=== PATIENT | male | born 1990 | race Caucasian/White ===

== ENCOUNTER → 2017-05-24 | Outpatient (CLI) | payer BC ==
--- NOTE | 2017-05-24 17:42 | Diagnostic Imaging Report ---
INDICATION: Right renal calculus. FINDINGS: Single view of the abdomen reveals an approximately 0.4 cm calculus projecting over the lower pole of the right kidney. No other pathologic calcification is seen within the abdomen. There is no evidence of bowel obstruction or free intraperitoneal gas. IMPRESSION: 0.4 cm calculus projects over the lower pole of the right kidney. There is no radiographic evidence of additional pathologic calcification. Dictated by: Dictated on workstation # [id number]
== END ==
LOC: RAD 16:59
PROVIDERS: ATTEND Urology
DX: N20.0 Calculus of kidney (principal)
CPT/HCPCS: 74000

== ENCOUNTER 2017-05-29 08:55 | Outpatient (CLI) | payer BC ==
[~2017-05-29] VITALS: Ht 175.3 cm; Wt 70.3 kg
[2017-05-29] MEDS ORDERED: AMIT10TA6 PO (11:50)
== END 2017-05-29 12:23 ==
LOC: PREOP 08:55
PROVIDERS: ATTEND Urology
DX: Z01.818 Encounter for other preprocedural examination (principal); N20.1 Calculus of ureter

== ENCOUNTER 2017-05-31 06:39 | Day surgery (SDC) | payer BC ==
[~2017-05-31] VITALS: Ht 175.3 cm; Wt 70.3 kg
[~2017-05-31 06:39] MED LIST: AMIT10TA6 PO
[2017-05-31] MEDS ORDERED: NS (IVPB) 50 ML ONE (06:58)
[2017-05-31] MEDS ORDERED: cefTRIAXone 1 GM (ROCEPHIN) VIAL ONE (06:58)
[2017-05-31] MEDS: LACTATED RINGERS 1,000 ML IV PRN ×2 (07:00→08:35)
--- NOTE | 2017-05-31 07:08 | Progress Note-Pre Operative ---
Pre-Operative Progress Note H&P Reviewed The H&P was reviewed, patient examined and no changes noted. Date Seen by Provider: May 31, 2017 Time Seen by Provider: 07:07 Date H&P Reviewed: May 31, 2017 Time H&P Reviewed: 07:07 Pre-Operative Diagnosis: RT URETERAL STONE NATHALIE MANCIA MD May 31, 2017 7:08 am
[2017-05-31] MEDS ORDERED: cefTRIAXone 1 GM/NS 50 ML IVPB IV ONE ×2 (07:15)
[2017-05-31 07:32] VITALS: BP 125/81
--- NOTE | 2017-05-31 07:53 | Diagnostic Imaging Report ---
INDICATION: Urinary tract calculi Single view of the abdomen is obtained with comparison made to study of 05/24/2017. 0.4 cm calculus projects over the lower pole of the right kidney. There is also an approximately 0.3 cm density projecting over the right L3 transverse process which could represent ureteric stone. Bowel gas pattern is unremarkable. IMPRESSION: Right lower pole renal calculus similar to previous study. There is a questionable 0.3 cm calculus in the vicinity of the proximal right ureter and clinical correlation is recommended. Dictated by: Dictated on workstation # [id number]
[2017-05-31] MEDS ORDERED: MIDAZOLAM 2 MG/2 ML (VERSED) VIAL ONE (08:01)
[2017-05-31] MEDS ORDERED: fentaNYL INJECTION 100 MCG/2 ML AMP ONE (08:01)
[2017-05-31] MEDS ORDERED: LACTATED RINGERS 1,000 ML IV PRN (08:06)
[2017-05-31] MEDS ORDERED: DEXAMETHASONE 10 MG/ML (DECADRON) 1 ML VIAL ONE (08:20)
[2017-05-31] MEDS ORDERED: SEVOFLURANE (ULTANE) 15 ML INHAL SOLN ONE (08:20)
[2017-05-31] MEDS ORDERED: ONDANSETRON 4 MG/2 ML (SDV) Z0FRAN ONE (08:20)
[2017-05-31] MEDS ORDERED: FUROSEMIDE 40 MG/4 ML INJ (LASIX) ONE (08:20)
[2017-05-31] MEDS ORDERED: proPOfol 200 MG/20 ML (DIPRIVAN) VIAL IV ONE (08:20)
[2017-05-31] MEDS ORDERED: LIDOCAINE PF 2% 5 ML (XYLOCAINE) VIAL ONE (08:20)
--- NOTE | 2017-05-31 08:22 | Discharge Inst-Urology ---
Discharge Inst-Urology Discharge Medications New, Converted, or Re-newed RX: RX on Chart Patient Instructions/Follow Up Plan Please make appointment to been seen in office in 3 weeks. KUB prior to it KUB on way home Post ESWL instructions Increase oral fluids for 48 hours and then as needed. Diet and Activity as tolerated. If questions or concerns contact your physician Or seek help at emergency department. NATHALIE MANCIA MD May 31, 2017 8:22 am
--- NOTE | 2017-05-31 08:24 | Progress Note-Post Operative ---
Post-Operative Progess Note Surgeon (s)/Electrical Electronics Engineer (s) Surgeon NATHALIE MANCIA MD Electrical Electronics Engineer: N/A Pre-Operative Diagnosis RT URETERAL STONE Post-Operative Diagnosis RT URETERAL AND RENAL STONES Procedure & Operative Findings Date of Procedure 05/31/17 Procedure Performed/Findings RT ESWL Anesthesia Type GENERAL Estimated Blood Loss Estimated blood loss (mL): N/A Specimens/Packing Specimens Removed N/A Packing: N/A NATHALIE MANCIA MD May 31, 2017 8:24 am
[2017-05-31] MEDS ORDERED: ONDANSETRON 4 MG/2 ML (SDV) Z0FRAN IVP PRN (09:00)
[2017-05-31] MEDS ORDERED: morphine INJ 10 MG/ML 1ML (SYR OR VIAL) IVP PRN (09:00)
[2017-05-31 09:50] VITALS: BP 139/96
[2017-05-31] MEDS ORDERED: NITR-68 PO (10:10)
[2017-05-31] MEDS ORDERED: HYDR-3874 PO (10:10)
[2017-05-31] MEDS ORDERED: TAMS0.4C98 PO (10:10)
[2017-05-31 10:20] VITALS: BP 122/84
[2017-05-31 10:50] VITALS: BP 131/82
[2017-05-31 11:00] VITALS: BP 122/84
--- NOTE | 2017-05-31 11:01 | Diagnostic Imaging Report ---
EXAMINATION: Supine view of the abdomen. INDICATION: Status post lithotripsy of right kidney stones. FINDINGS: The right flank stones up to 6 mm in size projecting over the lower pole of the right kidney. No stones are seen in the left flank or in the pelvis. Unremarkable bowel gas pattern is seen. IMPRESSION: Lower pole right kidney stones up to 6 mm seen. Dictated by: Dictated on workstation # [id number]
--- NOTE | 2017-06-01 13:15 | OPERATIVE REPORT ---
DATE OF SERVICE: 05/31/2017 PREOPERATIVE DIAGNOSIS: Right proximal ureteral and right renal stones. POSTOPERATIVE DIAGNOSIS: Right proximal ureteral and right renal stones. OPERATION PERFORMED: Right ESWL, both stones. SURGEON: Colby Mancia M.D. ANESTHESIA: General. COMPLICATIONS: None. DESCRIPTION OF PROCEDURE: Under satisfactory general anesthesia, the patient in supine position on the ESWL table, we first localized the right proximal ureteral stone. Shocks were delivered at kV of 6. After 1500 shocks, we did not visualize the stone anymore, completely fragmented. Then, we moved to the right lower pole renal stone and delivered 1000 shocks that completely fragmented the stone. The patient received 40 mg of Lasix and 30 mg Toradol IV at the end of procedure. He tolerated the procedure and anesthesia well, was sent to recovery room in stable condition. Job ID: [id number] DocumentID: [id number] Dictated Date: 05/31/2017 08:48:33 [employer] Date: 05/31/2017 15:52:55 Dictated By: COLBY MANCIA MD
== END 2017-05-31 11:00 | disposition home or self-care (01) ==
LOC: SDC 06:39 → SURG 10:25 → SDC 11:00
PROVIDERS: ATTEND Urology
DX: N20.2 Calculus of kidney with calculus of ureter (principal); R51 Headache; Z79.899 Other long term (current) drug therapy
CPT/HCPCS: 74000; 87081

== ENCOUNTER → 2017-06-21 | Outpatient (CLI) | payer BC ==
[~2017-06-21] MED LIST changes: +HYDR-3874 PO; +NITR-68 PO; +TAMS0.4C98 PO
--- NOTE | 2017-06-21 19:06 | Diagnostic Imaging Report ---
EXAMINATION: Supine view of the abdomen. INDICATION: Right renal stone, after lithotripsy. FINDINGS: There is a 4 mm calcification projecting over the lower aspect of the right renal silhouette which may represent a stone. No definite ureteric stone. No pelvic calcifications to suggest bladder stones. IMPRESSION: 4 mm right flank calcification may relate to a lower pole right kidney stone. Dictated by: Dictated on workstation # [id number]
== END ==
LOC: RAD 14:00
PROVIDERS: ATTEND Urology
DX: N20.0 Calculus of kidney (principal); Z98.890 Other specified postprocedural states
CPT/HCPCS: 74000